=== PATIENT | female | born 1975 | race Caucasian/White ===

== ENCOUNTER 2018-07-15 19:55 | Emergency (ER) | payer OTHER ==
[2018-07-15] MEDS ORDERED: ASPIRIN 81 MG CHEWABLE TABLETS PO ONE (20:04)
--- NOTE | 2018-07-15 20:04 | PDOC ---
Rapid Medical Evaluation Time Seen by Provider: 07/15/18 20:02 Medical Evaluation: 07/15/18 20:02 HPI: 3 weeks of chest pain history of breast Ca PE:NAD ORDERS:Cardiac work up Discharge Disposition - Diagnosis Chest pain - Referrals - Patient Instructions - Post Discharge Activity
[2018-07-15 20:08] VITALS: BMI 37.2
--- NOTE | 2018-07-15 21:16 | PDOC ---
History of Present Illness - History of Present Illness Initial Comments: 07/15/18 22:15 The patient is a 42 year old female with a history of Asthma, and Left Breast CA who presents for evaluation of abdominal pain. The patient reports poorly described epigastric abdominal pain with radiation into her chest over the past 3 days prompting her presentation to the ED for further evaluation. She notes that her symptoms worsen after eating and are associated with nausea. She otherwise denies fevers, chills, SOB, vomiting, numbness, tingling, weakness, or changes with urination or bowel movements. <Marco Russo - Last Filed: 07/15/18 22:15> <Lynn Jacobo - Last Filed: 07/16/18 03:42> - General Chief Complaint: Chest Pain Stated Complaint: STOMACE PAIN Time Seen by Provider: 07/15/18 20:02 Past History - Past Medical History Asthma: Yes Cancer: Yes (left) COPD: No - Suicide/Smoking/Psychosocial Hx Smoking History: Never smoked <Marco Russo - Last Filed: 07/15/18 22:15> <Lynn Jacobo - Last Filed: 07/16/18 03:42> - Past Medical History Allergies/Adverse Reactions: Allergies Allergy/AdvReac Type Severity Reaction Status Date / Time No Known Allergies Allergy Verified 07/15/18 20:04 Review of Systems - Review of Systems Comments:: 07/15/18 22:17 Constitutional: No fevers, chills, fatigue, malaise HEENT: No Rhinorrhea, nasal congestion, visual changes Cardiovascular: Chest pain. No syncope, palpitations, lightheadedness Respiratory: No Cough, SOB, Hemoptysis, Gastrointestinal: Epigastric abdominal pain, nausea. No Vomiting, Constipation , Diarrhea, Melena Genitourinary: No Dysuria, Frequency, Urgency, Hesitancy, Hematuria, Flank pain Musculoskeletal: No Myalgia, arthralgia Skin: No rashes, itching, bruising, pallor Neurologic: No Headache, Dizziness, Numbness, Weakness, or Tingling Psychiatric: No Hallucinations. No SI or HI <Marco Russo - Last Filed: 07/15/18 22:15> *Physical Exam - Vital Signs Last Vital Signs Temp Pulse Resp BP Pulse Ox 98.1 F 97 H 18 128/97 99 07/15/18 20:04 07/15/18 20:04 07/15/18 20:04 07/15/18 20:04 07/15/18 20:04 - Physical Exam Comments: 07/15/18 22:18 General Appearance: Nourished. No Apparent Distress HEENT: No Pharyngeal Erythema, Tonsillar Exudate, Tonsillar Erythema Neck: No Cervical Lymphadenopathy Respiratory/Chest: Lungs Clear, Normal Breath Sounds. No Crackles, Rales, Rhonchi, Wheezing Cardiovascular: Regular Rhythm, Regular Rate. No Murmur, Gallops, Rubs Gastrointestinal/Abdominal: Normal Bowel Sounds, Soft. Epigastic tenderness to palpation on exam. No Guarding, Rebound, Musculoskeletal: No CVA Tenderness Extremity: Normal Capillary Refill Integumentary: Normal Color, Dry, Warm Neurologic: Fully Oriented, Alert, Normal Mood/Affect, Normal Response, <Marco Russo - Last Filed: 07/15/18 22:15> - Vital Signs Last Vital Signs Temp Pulse Resp BP Pulse Ox 97.6 F 73 18 102/66 100 07/16/18 01:48 07/16/18 01:48 07/15/18 20:04 07/16/18 01:48 07/16/18 01:48 <Lynn Jacobo - Last Filed: 07/16/18 03:42> ED Treatment Course - LABORATORY CBC & Chemistry Diagram: 07/16/18 00:05 07/16/18 00:05 - ADDITIONAL ORDERS Additional order review: Laboratory Results 07/16/18 07/16/18 00:05 00:05 Sodium 138 Potassium 4.0 Chloride 108 H Carbon Dioxide 25 Anion Gap 6 L BUN 22 H Creatinine 1.0 Est GFR (CKD-EPI)AfAm 80.47 Est GFR (CKD-EPI)NonAf 69.43 Random Glucose 88 Calcium 8.2 L Magnesium 2.2 Total Bilirubin 0.2 AST 22 ALT 24 Alkaline Phosphatase 133 H Creatine Kinase 110 Troponin I < 0.02 Total Protein 7.1 Albumin 3.4 Lipase 129 07/16/18 00:05 RBC 4.37 MCV 74.6 L MCHC 32.1 RDW 14.6 MPV 7.2 L Neutrophils % 56.0 Lymphocytes % 32.4 Monocytes % 6.3 Eosinophils % 4.3 Basophils % 1.0 - Medications Given in the ED: ED Medications Discontinued Medications Generic Name Dose Route Start Last Admin Trade Name Bear PRN Reason Stop Dose Admin Al Hydroxide/Mg Hydroxide 30 ml 07/15/18 21:21 07/15/18 23:55 Mylanta Oral Suspension - PO 07/15/18 21:22 30 ml ONCE ONE Administration Aspirin 162 mg 07/15/18 20:04 07/15/18 23:55 Asa - PO 07/15/18 20:05 162 mg ONCE ONE Administration Famotidine/Sodium Chloride 20 mg in 50 mls @ 100 mls/hr 07/15/18 21:21 23:00 Pepcid 20 Mg Premixed Ivpb - IVPB 07/15/18 21:50 100 mls/hr ONCE ONE Administration Sodium Chloride 1,000 mls @ 1,000 mls/hr 07/15/18 21:21 07/15/18 23:00 Normal Saline - IV 07/15/18 22:20 1,000 mls/hr ASDIR STA Administration Ondansetron HCl 4 mg 07/15/18 21:21 07/15/18 23:00 Zofran Injection IVPUSH 07/15/18 21:22 4 mg ONCE ONE Administration <Lynn Jacobo - Last Filed: 07/16/18 03:42> Medical Decision Making - Medical Decision Making 07/15/18 22:18 The patient is a 42 year old female with a history of Asthma, and Left Breast CA who presents for evaluation of abdominal pain. Differential includes but is not limited to: ACS, Gastritis, Pancreatitis, Cholecysitis, Infectious, Metabolic Derangement. Given the patient's history and physical exam, we will obtain a cbc, cmp, troponin, lipase, ua, ekg, chest plain film, gallbladder US to evaluate further. We will treat with iv fluids, pepcid, zofran, maalox and continue to monitor and reassess while here in the ED. <Marco Russo - Last Filed: 07/15/18 22:15> *DC/Admit/Observation/Transfer <Marco Russo - Last Filed: 07/15/18 22:15> - Discharge Dispostion Decision to Admit order: No <Lynn Jacobo - Last Filed: 07/16/18 03:42> Diagnosis at time of Disposition: Abdominal pain - Discharge Dispostion Disposition: HOME Condition at time of disposition: Improved - Referrals Referrals: Duncan Quiles [Primary Care Provider] - - Patient Instructions Printed Discharge Instructions: DI for Abdominal Pain-Adult - Post Discharge Activity
[2018-07-15] MEDS ORDERED: MAG HYDROX/AL HYDROX/SIMETH 30 ML UNIT-DOSE CUP PO ONE (21:21)
[2018-07-15] MEDS ORDERED: ONDANSETRON 4 MG/2 ML VIAL IVPUSH ONE (21:21)
[2018-07-15] MEDS ORDERED: FAMOTIDINE 20 MG/50 ML IVPB 20 MG/50 ML MG IVPB ONE ×2 (21:21→23:04)
[2018-07-15] MEDS ORDERED: SODIUM CHLORIDE 1,000 ML IV STA (21:21)
[2018-07-15] MEDS ORDERED: ONDANSETRON 4 MG/2 ML VIAL ONE (23:04)
[2018-07-15] MEDS ORDERED: ASPIRIN 81 MG CHEWABLE TABLETS ONE (23:51)
[2018-07-15] MEDS ORDERED: MAG HYDROX/AL HYDROX/SIMETH 30 ML UNIT-DOSE CUP ONE (23:51)
[2018-07-16 00:27] LABS: EOS % 4.3 % (0-4.5); HEMATOCRIT 32.6 % (32.4-45.2); HEMOGLOBIN 10.5 GM/dL (10.7-15.3); LYMPH % 32.4 % (8-40); MCHC 32.1 g/dl (32.0-36.0); MEAN CELL VOLUME 74.6 fl (80-96); MEAN PLT VOLUME 7.2 fl (7.5-11.1); MONO % 6.3 % (3.8-10.2); PLATELET COUNT 365 K/MM3 (134-434); RBC 4.37 M/mm3 (3.60-5.2); RDW 14.6 % (11.6-15.6); WHITE BLOOD COUNT 8.9 K/mm3 (4.0-10.0)
[2018-07-16 00:51] LABS: ALBUMIN 3.4 g/dl (3.4-5.0); ALK PHOS 133 U/L (45-117); ANION GAP 6 MMOL/L (8-16); BILIRUBIN,TOTAL 0.2 mg/dL (0.2-1); BLOOD UREA NITROGEN 22 mg/dL (7-18); CALCIUM 8.2 mg/dL (8.5-10.1); CHLORIDE 108 mmol/L (98-107); CO2 25 mmol/L (21-32); GLUCOSE,RANDOM 88 mg/dL (74-106); MAGNESIUM 2.2 mg/dL (1.8-2.4); SGOT/AST 22 U/L (15-37); SGPT/ALT 24 U/L (13-61); SODIUM 138 mmol/L (136-145); TOT PROT 7.1 g/dl (6.4-8.2)
[2018-07-16 01:49] VITALS: BP 102/66; PULSE 73; TEMP 97.6
--- NOTE | 2018-07-16 03:10 | PDOC ---
Documentation entered by Mohsen Tripp SCRIBE, acting as scribe for Lynn Jacobo DO. Lynn Jacobo DO: This documentation has been prepared by the Josee mann Matthew, SCRIBE, under my direction and personally reviewed by me in its entirety. I confirm that the documentation accurately reflects all work, treatment, procedures, and medical decision making performed by me. Attending Attestation - Resident Resident Name: Marco Russo - ED Attending Attestation I have performed the following: I have examined & evaluated the patient, The case was reviewed & discussed with the resident, I agree w/resident's findings & plan - HPI HPI: 07/15/18 22:17 Patient is a 42 year old female with a significant past medical history of Asthma, cancer who presents to the ED with complaints of 42 year old female with a significant past medical history of who presents to the ED with complaints of epigastric pain that began x3 days ago. Patient reports experiencing epigastric abdominal pain that she states began to radiate up to her chest, prompting her to come into the ED for further evaluation. She reports experiencing associated symptoms of nausea, that is increased with eating. Denies chest pain, Sob. Denies nausea, vomiting. Denies fevers, chills. Denies constipation, diarrhea. Denies dysuria, hematuria. Denies contact with sick individuals, out of state travelling. Denies any other symptoms. Allergies: NKDA Social history: No smoking. No alcohol. No illicit drugs. Surgical history: None PMD: Dr. Quiles - Physicial Exam PE: 07/15/18 22:17 Agree with residents Physical Exam. - Medical Decision Making 07/16/18 03:09 42-year-old female with abdominal pain Ultrasound showed no acute abnormalities On reevaluation at 3 AM after IV fluids antacids and anti-emetics patient has pain in the right lower quadrant and periumbilical region CT scan of the abdomen and pelvis has been ordered to rule out appendicitis Disposition pending CT scan results
[2018-07-16 04:33] LABS: HCG,QUALITATIVE URINE Negative
[2018-07-16 08:57] LABS: EPI CELLS 2.4 /HPF (0-5/HPF); URINE APPEARANCE CLEAR; URINE BACTERIA 54.5 /hpf (NEGATIVE); URINE BILIRUBIN NEGATIVE (NEGATIVE); URINE CASTS 0 /lpf (0-8); URINE COLOR YELLOW; URINE GLUCOSE (UA) NEGATIVE (NEGATIVE); URINE KETONE NEGATIVE (NEGATIVE); URINE LEUK ESTERASE NEGATIVE (NEGATIVE); URINE NITRITE NEGATIVE (NEGATIVE); URINE PROTEIN NEGATIVE (NEGATIVE); URINE RBC 0 /hpf (0-4); URINE UROBILINOGEN 0.2 mg/dL (0.2-1.0); URINE WBC 1 /hpf (0-5)
--- NOTE | 2018-07-16 17:16 | EKG ---
Test Reason : Blood Pressure : / mmHG Vent. Rate : 090 BPM Atrial Rate : 090 BPM P-R Int : 194 ms QRS Dur : 076 ms QT Int : 374 ms P-R-T Axes : 059 033 055 degrees QTc Int : 457 ms NORMAL SINUS RHYTHM LOW VOLTAGE QRS CANNOT RULE OUT ANTERIOR INFARCT , AGE UNDETERMINED ABNORMAL ECG NO PREVIOUS ECGS AVAILABLE Confirmed by LATOYA CAMEJO MD ([id number]) on 07/16/2018 5:15:36 PM Referred By: Confirmed By:LATOYA CAMEJO MD
== END 2018-07-16 04:56 | disposition home or self-care (01) ==
LOC: JER 19:55
PROC: 3E033GC Introduction of Other Therapeutic Substance into Peripheral Vein, Percutaneous Approach (ICD-10-PCS; principal; 2018-07-15)
PROC: 3E033GC Introduction of Other Therapeutic Substance into Peripheral Vein, Percutaneous Approach (ICD-10-PCS; 2018-07-15)
DX: R10.9 Unspecified abdominal pain (principal); J45.909 Unspecified asthma, uncomplicated; Z85.3 Personal history of malignant neoplasm of breast
CPT/HCPCS: 36415; 71046-TC-FY; 74177-TC; 76705-TC; 80053; 81003; 82550; 83690; 83735; 84484; 84703; 85025; 87086; 93005; 93010; 99283-25; J7030